=== PATIENT | female | born 1975 | race African-American/Black ===

== ENCOUNTER → 2017-02-16 | Outpatient (CLI) | payer BC ==
[~2017-02-16] MED LIST: AMLO-114 PO; ASCO1CAP3 PO; LISI-788 PO; MULT-506 PO; OMEG10007 PO; SIMV20TA2 PO
[2017-02-16 14:02] VITALS: BP 129/89; PULSE 77; TEMP 37; O2SAT 94
--- NOTE | 2017-02-16 16:28 | Radiation Oncology Follow-Up ---
Radiation Oncology Follow-Up Date of Visit February 16, 2017. Reason For Visit One-month follow-up and cancer survivorship care plan Radiation Completion Date finished 01-12-2017 Diagnosis (1) DCIS (ductal carcinoma in situ) of breast Onset Date: 05/12/2016 Stage: 0 Permanent Comment: Status post abnormal right breast mammogram 02/27/2016 Status post stereotactic biopsy 03/15/2016 revealing low-grade DCIS Estrogen receptor positive and progesterone receptor positive Status post right breast lumpectomy and bilateral reduction mammoplasty 2015 Stage pTis NX MX BRCA analysis negative Status post completion of radiation therapy 01/12/2017 received 5130 cGy utilizing hypo-fractionation. Last Edited By: Krystal Cali on January 26, 2017 09:43 History of Present Illness Ms. Harris is a 41-year-old female with a family history of breast cancer. The patient's mother was diagnosed at an early age and is from metastatic breast cancer. The patient has been followed carefully. Mammogram on 2010 compared to prior mammograms in 2008 in 2009 showed dense bilateral breast tissue with no abnormalities with a BI-RADS Category 1. Repeat in July 2012 showed a questionable new density in the left breast which was indeterminate. Spot compression views and ultrasound were recommended. This again showed an asymmetry in the left breast anterior depth that was indeterminate. On 08/11/2012 patient underwent bilateral MRIs of the breast. No true dominant mass was seen and no well defined dominant area of architectural distortion was seen in either breast. Additional close follow-up was recommended. Repeat MRI on 01/31/2013 again showed no overtly suspicious findings in either breast. In the right breast there were numerous tiny enhancing foci measuring up to 4 mm that were stable. Within the upper outer quadrant of the right breast a 1.8 cm area of prominent enhancement that was also present on prior exam without change noted. There was borderline enlargement of the right axillary lymph node also unchanged from prior MRI. A unilateral right digital diagnostic mammogram and targeted right breast ultrasound performed on 02/12/2013 was unremarkable with a BI-RADS Category 1. Her next documented mammogram was on 02/27/2016. This showed right lower inner quadrant calcifications and right medial breast asymmetry. Additional imaging was recommended. On 03/10/2016 patient underwent a unilateral right digital diagnostic mammogram and targeted right breast ultrasound. There was several new clusters of slightly pleomorphic microcalcifications noted with a segmental distribution in the lower inner middle and anterior right breast. When measuring the most posterior cluster to the most anterior cluster the disease distance was approximate 7 cm in the AP dimension and 4 cm in the craniocaudad dimension. These calcifications are new compared to the most recent prior mammogram from January 2013. There was no obvious mass or architectural distortion. On real-time high-resolution sonographic evaluation there were no suspicious solid or cystic masses to correlate with the effacing mammographic asymmetry. Patient was seen by Dr. Nick Crenshaw for further evaluation. A biopsy of these areas were recommended. On 2015 patient underwent a stereotactic guided right breast biopsy. This revealed a low-grade ductal carcinoma in situ with no infiltrative component. The low-grade DCIS was multifocally distributed clearly exceeding 1 cm in aggregate dimension. There was no necrosis. The architectural pattern was cribriform and micropapillary. Estrogen and progesterone receptors were positive. Case: [id number]. Dr. Crenshaw discussed the possibility of breast conserving therapy along with the possibility of bilateral reduction mammoplasty. The patient was seen by Dr. Margaret Mg and ultimately agreed to this approach. Therefore on 2015 the patient underwent a needle localization lumpectomy followed by bilateral reduction mammoplasty. The needle localization lumpectomy specimen confirmed residual low-grade DCIS. The distribution was again extensively distributed within the specimen with a foci of low-grade DCIS in aggregate exceeding 2 cm. There was focal expansive (comedo) necrosis seen. Architectural pattern was micropapillary and cribriform with microcalcifications present. The margins were free of tumor. The low-grade DCIS was closest to the inked margin with additional tissue taken that was clear. The remainder of the reduction mammoplasty tissue of the right breast showed no tumor and the left breast also showed no tumor. Case: [id number]. It was noted at that time however that a marker was not recovered and it was unclear whether this was still remaining and the patient. The patient has recovered extremely well with an excellent cosmetic outcome. On 09/03/2016 the patient underwent unilateral right digital diagnostic mammogram. This showed the expected postsurgical changes in the right breast from the recent lumpectomy and reduction mammoplasty. A residual biopsy clip from the prior stereotactic biopsy was noted in the right medial breast at the 3 o'clock position. Spot magnification views of the surgical bed demonstrate residual faint calcifications seen adjacent to the biopsy clip as well as anterior and posterior to the clip throughout the right lower inner quadrant. On the lateral view calcifications are seen to extend from the biopsy marker clips superiorly to the level of the skin inferiorly at the site of the scar. The total extent of the calcifications measured approximately 3.5 x 6.7 x 7.0 cm. Recommendations are for surgical excision of the residual calcifications and a biopsy marker. The tissue was sent for BRCA1 and 2 analysis and no clinically significant variant was detected. We were asked to see the patient prior to the finding of this most recent mammogram for evaluation and discussion of the role of radiation. It is for this reason the patient is seen in referral. She underwent a CT simulation. She was found to be a candidate for hypo- fractionation. The radiation was completed 01/12/2017. She received 5130 cGy Interim History She's been doing well over this past month. She did have some dryness and peeling of the skin. This resolved without difficulty. There is some mild darker discolorations and that continues. She has noted no masses or tenderness and no change of the axilla. She had seen Dr. Crenshaw in follow-up and was prescribed tamoxifen. She filled the prescription but has made decision not to take the medication at this time. Is currently not set up for follow-up mammography. Allergies Coded Allergies: Levofloxacin (Verified Allergy, Mild, ITCHY ABDOMINAL RASH, 05/12/16) Penicillins (Verified Adverse Reaction, Mild, NAUSEA AND VOMITING, 05/12/16 ) Home Medications Scheduled Amlodipine (Norvasc), 10 MG PO QPM Ascorbic Acid (Vitamin C), 1 CAP PO DAILY Fish Oil (Popejoy-3), 1 CAP PO DAILY Lisinopril/Hctz (Zestoretic 20MG/25MG), 1 TAB PO QPM Multivitamin (Multivitamin), 1 TAB PO QPM Simvastatin (Zocor), 1 TAB PO DAILY Review of Systems Gastrointestinal: Symptoms: WNL Oral: Symptoms: No Problems Respiratory: Symptoms: WNL Urinary: Symptoms: WNL Skin: Symptoms: No Problems Breast: Right Upper Arm Measurement: 32.0 Right Mid Arm Measurement: 25.4 Right Wrist Measurement: 15.1 Left Upper Arm Measurement: 32.5 Left Mid Arm Measurement: 24.8 Left Wrist Measurement: 15.2 Arm Dominence: Right Patient Cosmetic Evaluation: Good Staff Cosmetic Evalaluation: Good Additional Notes: She completed a distress management report and answered "no" to all questions. Physical Exam Vital Signs Date Time Temp Pulse Resp B/P Pulse Ox O2 Delivery O2 Flow Rate FiO2 02/16/17 14:02 37.0 77 18 129/89 94 Pain: Side: Bilateral Patient Pain Scale: 0 - 10 Initial Pain Intensity: 0.0 Fatigue: None General Appearance: no apparent distress Eyes: normal inspection, EOMI ENT: normal ENT inspection, hearing grossly normal Neck: no adenopathy, thyroid normal Respiratory/Chest: lungs clear, no respiratory distress, no accessory muscle use Breast: Breast examination reveals well-healed incisions from the bilateral reduction mammoplasties. There are no masses or tenderness no axillary adenopathy. She has mild keloid formation on the left side. Minimal keloid formation on the right. There is mild hyperpigmentation on the right. There is no breast edema. Using the [place] score cosmesis she has a good outcome. Cardiovascular: regular rate, rhythm, no gallop, no murmur Abdomen: non tender Extremities: no pedal edema Neurologic/Psychiatric: no motor/sensory deficits, alert, normal mood/affect Skin: warm/dry Assessment & Plan Plan: She may continue to discuss her decision about the tamoxifen with Dr. Crenshaw. Today we completed a cancer survivorship care plan. A copy of the document was given to the patient. She was scheduled for digital diagnostic mammograms. The right rest will be imaged in 2 months and bilateral mammography in 8 months. We asked her to return to our office in 6 months. She may call if she has any questions or concerns in the interim. Total Time In Follow-Up I spent 20 minutes speaking to the patient and performing examination. I spent 20 minutes reviewing information and completing this note. Copy To Nick Crenshaw M.D.; Margaret Mg MD; Catie Carbajal D.O. Problem Qualifiers (1) DCIS (ductal carcinoma in situ) of breast: Laterality: right Qualified Codes: D05.11 - Intraductal carcinoma in situ of right breast
== END | disposition home or self-care (01) ==
LOC: C.ONC 13:50
PROVIDERS: ATTEND Physician Assistant Medical
DX: Z08 Encounter for follow-up examination after completed treatment for malignant neoplasm (principal); Z92.3 Personal history of irradiation; Z85.3 Personal history of malignant neoplasm of breast

== ENCOUNTER → 2017-04-18 | Outpatient (CLI) | payer BC ==
--- NOTE | 2017-04-19 13:31 | MAMMOGRAPHY REPORT ---
BILATERAL DIGITAL DIAGNOSTIC MAMMOGRAM TOMOSYNTHESIS WITH CAD: 04/18/2017 CLINICAL HISTORY: History of right breast cancer status post right lumpectomy and bilateral reduction mammoplasty. The patient had subsequent right breast reexcisions with last reexcision yielding nega tive margins. She also underwent radiation therapy. The patient reports no current complaints. TECHNIQUE: Breast tomosynthesis in addition to standard 2D mammography was performed. Current study was also evaluated with a Computer Aided Detection (CAD) system. Bilateral CC and MLO 2D and tomosyn thesis images and spot magnification right cc and ML views were obtained. COMPARISON: Comparison is made to exams dated: 09/03/2016 mammogram, 05/12/2016 localization, 6 mammogram, 03/15/2016 stereotactic biopsy, 03/10/2016 ultrasound, and 03/10/2016 mammogram - [facility]. BREAST COMPOSITION: The tissue of both breasts is heterogeneously dense, which may obscure small mas ses. FINDINGS: Again noted are postsurgical changes in the right medial breast from prior lumpectomy, inc luding density, architectural distortion, and surgical clips at the lumpectomy bed. Post surgical ch anges from bilateral reduction mammoplasty are also noted. Spot magnification views demonstrate resi dual calcifications at the lumpectomy bed, predominantly the anterior aspect, as well as in the right lower inner quadrant more inferiorly near the skin surface. The total extent of the inferior calcif ications measures 2.2 cm on the spot magnification ML view, while the extent of calcifications at the lumpectomy bed measures up to 2.6 cm. Residual DCIS is not excluded. The remainder of both breasts demonstrate no suspicious masses, calcifications, or areas of nonsurgical architectural distortion. IMPRESSION: ACR BI-RADS CATEGORY 4: SUSPICIOUS Residual calcifications seen at the right lumpectomy bed as well as inferiorly near the skin surface. Residual DCIS is not excluded, therefore, surgical excision of the residual calcifications is recom mended. No mammographic evidence of malignancy in the left breast. A phone call was made to the physician's office to confirm faxed results were received. The patient has been verbally notified of the results. Approximately 10% of breast cancers are not detected with mammography. A negative mammographic report should not delay biopsy if a clinically suggestive mass is present. Regina Gerard M.D. ah/:04/18/2017 20:43:48 Executive Director [employer]: Charlene Bailey, [facility] letter sent: Abnormal 4/5 BI-RADS Code: ACR BI-RADS Category 4: Suspicious
== END | disposition home or self-care (01) ==
LOC: C.MAMM 08:11
PROVIDERS: ATTEND Physician Assistant Medical
DX: Z08 Encounter for follow-up examination after completed treatment for malignant neoplasm (principal); Z85.3 Personal history of malignant neoplasm of breast; Z92.3 Personal history of irradiation

== ENCOUNTER → 2017-08-24 | Outpatient (CLI) | payer BC ==
[2017-08-24 14:19] VITALS: BP 131/84; PULSE 84; TEMP 37; O2SAT 96
--- NOTE | 2017-08-24 16:35 | Radiation Oncology Follow-Up ---
Radiation Oncology Follow-Up Date of Visit Aug 24, 2017. Reason For Visit 6 month follow-up Radiation Completion Date Hypofractionation 01/12/17 Diagnosis (1) DCIS (ductal carcinoma in situ) of breast Onset Date: 05/12/2016 Stage: 0 Permanent Comment: Status post abnormal right breast mammogram 02/27/2016 Status post stereotactic biopsy 03/15/2016 revealing low-grade DCIS Estrogen receptor positive and progesterone receptor positive Status post right breast lumpectomy and bilateral reduction mammoplasty 2015 Stage pTis NX MX BRCA analysis negative Status post completion of radiation therapy 01/12/2017 received 5130 cGy utilizing hypo-fractionation. Abnormal mammogram 04/18/2017 Status post biopsy 05/06/2017 revealing benign fat necrosis Patient opted out of tamoxifen therapy. Last Edited By: Krystal Cali on Aug 24, 2017 16:29 History of Present Illness Ms. Vila has a family history of breast cancer. The patient's mother was diagnosed at an early age and is from metastatic breast cancer. The patient has been followed carefully. Mammogram on 2010 compared to prior mammograms in 2008 in 2009 showed dense bilateral breast tissue with no abnormalities with a BI-RADS Category 1. Repeat in July 2012 showed a questionable new density in the left breast which was indeterminate. Spot compression views and ultrasound were recommended. This again showed an asymmetry in the left breast anterior depth that was indeterminate. On 08/11/2012 patient underwent bilateral MRIs of the breast. No true dominant mass was seen and no well defined dominant area of architectural distortion was seen in either breast. Additional close follow-up was recommended. Repeat MRI on 01/31/2013 again showed no overtly suspicious findings in either breast. In the right breast there were numerous tiny enhancing foci measuring up to 4 mm that were stable. Within the upper outer quadrant of the right breast a 1.8 cm area of prominent enhancement that was also present on prior exam without change noted. There was borderline enlargement of the right axillary lymph node also unchanged from prior MRI. A unilateral right digital diagnostic mammogram and targeted right breast ultrasound performed on 02/12/2013 was unremarkable with a BI-RADS Category 1. Her next documented mammogram was on 02/27/2016. This showed right lower inner quadrant calcifications and right medial breast asymmetry. Additional imaging was recommended. On 03/10/2016 patient underwent a unilateral right digital diagnostic mammogram and targeted right breast ultrasound. There was several new clusters of slightly pleomorphic microcalcifications noted with a segmental distribution in the lower inner middle and anterior right breast. When measuring the most posterior cluster to the most anterior cluster the disease distance was approximate 7 cm in the AP dimension and 4 cm in the craniocaudad dimension. These calcifications are new compared to the most recent prior mammogram from January 2013. There was no obvious mass or architectural distortion. On real-time high-resolution sonographic evaluation there were no suspicious solid or cystic masses to correlate with the effacing mammographic asymmetry. Patient was seen by Dr. Nick Crenshaw for further evaluation. A biopsy of these areas were recommended. On 2015 patient underwent a stereotactic guided right breast biopsy. This revealed a low-grade ductal carcinoma in situ with no infiltrative component. The low-grade DCIS was multifocally distributed clearly exceeding 1 cm in aggregate dimension. There was no necrosis. The architectural pattern was cribriform and micropapillary. Estrogen and progesterone receptors were positive. Case: [id number]. Dr. Crenshaw discussed the possibility of breast conserving therapy along with the possibility of bilateral reduction mammoplasty. The patient was seen by Dr. Margaret Mg and ultimately agreed to this approach. Therefore on 2015 the patient underwent a needle localization lumpectomy followed by bilateral reduction mammoplasty. The needle localization lumpectomy specimen confirmed residual low-grade DCIS. The distribution was again extensively distributed within the specimen with a foci of low-grade DCIS in aggregate exceeding 2 cm. There was focal expansive (comedo) necrosis seen. Architectural pattern was micropapillary and cribriform with microcalcifications present. The margins were free of tumor. The low-grade DCIS was closest to the inked margin with additional tissue taken that was clear. The remainder of the reduction mammoplasty tissue of the right breast showed no tumor and the left breast also showed no tumor. Case: [id number]. It was noted at that time however that a marker was not recovered and it was unclear whether this was still remaining and the patient. The patient has recovered extremely well with an excellent cosmetic outcome. On 09/03/2016 the patient underwent unilateral right digital diagnostic mammogram. This showed the expected postsurgical changes in the right breast from the recent lumpectomy and reduction mammoplasty. A residual biopsy clip from the prior stereotactic biopsy was noted in the right medial breast at the 3 o'clock position. Spot magnification views of the surgical bed demonstrate residual faint calcifications seen adjacent to the biopsy clip as well as anterior and posterior to the clip throughout the right lower inner quadrant. On the lateral view calcifications are seen to extend from the biopsy marker clips superiorly to the level of the skin inferiorly at the site of the scar. The total extent of the calcifications measured approximately 3.5 x 6.7 x 7.0 cm. Recommendations are for surgical excision of the residual calcifications and a biopsy marker. The tissue was sent for BRCA1 and 2 analysis and no clinically significant variant was detected. We were asked to see the patient prior to the finding of this most recent mammogram for evaluation and discussion of the role of radiation. It is for this reason the patient is seen in referral. She underwent a CT simulation. She was found to be a candidate for hypo- fractionation. The radiation was completed 01/12/2017. She received 5130 cGy Interim History She had noticed no changes to her breast. She denies tenderness. No changes axilla or swelling of the arm. She had a recheck mammogram on 04/18/2017. This showed residual calcifications are seen at the right lumpectomy bed as well as inferiorly near the skin surface. Residual DCIS is not excluded, therefore, surgical excision of the residual ossifications is recommended. No mammographic evidence of malignancy in the left breast. This was given a BI- RADS Category 4. She was seen by Dr. Crenshaw and underwent an excisional biopsy. This was performed on 05/06/2017. This showed scar and reactive cellular changes consistent with previous procedures. That necrosis. Usual ductal hyperplasia. Scattered microcalcifications are present. The right inferior medial margin showed benign tissue. . She steadily recovered postoperatively and has been doing well. Dr. Crenshaw discussed antiestrogen therapy. She opted against taking tamoxifen. Allergies Coded Allergies: Levofloxacin (Verified Allergy, Mild, ITCHY ABDOMINAL RASH, 05/12/16) Penicillins (Verified Adverse Reaction, Mild, NAUSEA AND VOMITING, 05/12/16 ) Home Medications Scheduled Amlodipine (Norvasc), 10 MG PO QPM Ascorbic Acid (Vitamin C), 1 CAP PO DAILY Fish Oil ([place]-3), 1 CAP PO DAILY Lisinopril/Hctz (Zestoretic 20MG/25MG), 1 TAB PO QPM Multivitamin (Multivitamin), 1 TAB PO QPM Simvastatin (Zocor), 1 TAB PO DAILY Review of Systems Gastrointestinal: Symptoms: WNL Oral: Symptoms: No Problems Respiratory: Symptoms: WNL Urinary: Symptoms: WNL Skin: Symptoms: No Problems Breast: Right Upper Arm Measurement: 32.3 Right Mid Arm Measurement: 25.5 Right Wrist Measurement: 15.0 Left Upper Arm Measurement: 33.0 Left Mid Arm Measurement: 25.5 Left Wrist Measurement: 15.5 Arm Dominence: Right Physical Exam Vital Signs Date Time Temp Pulse Resp B/P (MAP) Pulse Ox O2 Delivery O2 Flow Rate FiO2 08/24/17 14:19 37.0 84 24 131/84 96 General Appearance: no apparent distress Eyes: normal inspection, EOMI ENT: normal ENT inspection, hearing grossly normal Neck: no adenopathy, thyroid normal Respiratory/Chest: lungs clear, no respiratory distress, no accessory muscle use Breast: Breast examination reveals status post bilateral minimal pexing. On the right she has an area of fibrous tissue in the central lower portion of the breast. There is associated hyperpigmentation. There are no distinct masses. She has no skin retractions or nipple changes. Using the [place] score cosmesis she has a good outcome. The left breast showed no masses or tenderness no axillary adenopathy. Cardiovascular: regular rate, rhythm, no gallop, no murmur Extremities: no pedal edema Neurologic/Psychiatric: no motor/sensory deficits, alert, normal mood/affect Skin: warm/dry Pain Management Pain Rating (0-10): 0 Pain Management Plan She denies pain therefore requires no pain management. Laboratory Studies [facility] SURGICAL PATHOLOGY REPORT Name JODIE VILA Case: [id number] SURGICAL PATHOLOGY REPORT Page 2 of 2 [facility] [address] [facility] [address] Jalen Yung M.D. correctional lieutenant PATHOLOGY REPORT SURGICAL PATHOLOGY REPORT Page 1 of 1 Name JODIE VILA Age/Sex 42/F Location: [facility] MR# [id number] : 1975 Rm/Bed Physician: Nick Crenshaw M.D. Case: [id number] Received 05/09/17 Specimen Date 05/06/17 CLINICAL HISTORY Calcifications right breast. GROSS DESCRIPTION A. RIGHT BREAST CALCIFICATIONS The specimen is received within a [employer] container labeled as right breast calcifications with patient name Jodie Vila. The specimen consists of a 9 x 6.8 x 2 cm fragment of fibrofatty tissue. The specimen radiograph shows two embedded localization needles and multiple metal clips, presumably from the prior excisions/re-excisions. Five different regions have been circled on the specimen radiograph and labeled 1 5. Some are associated with clips and others with punctate opacities, all aggregated, roughly centrally in the region of the wires and the clips. The regions are numbered 1 5 with regions 2, 3 and 4 associated with the area at and near the tip of the localization needles; 5, slightly outside the region of the needles and #1, in the region of the proximal ends of the localization needles. Sectioning through the specimen reveals an admixture of fatty and fibrous tissue and multiple metal clips. A semidiscrete, indurated, nodular focus is noted beyond the tips of the localization needles, just beyond the regions designated 2, 3 and 4. This measures 0.7 x 0.7 x 0.7 cm and abuts the resection margin. In the various numbered regions are an admixture of fibrous and fatty tissue, some of the fibrous tissue dense and hyaline in appearance and consistency. No definite gritty foci are noted. The specimen margins are inked. Supervisor Fitting sections are submitted in 23 cassettes as follows: A1 A10, circumferential peripheral edges; A11, nodular focus beyond regions 2, 3 and 4; A12/13, A14/15, and A16/17, paired, transverse sections to encompass regions 2, 3 and 4; A18 and A19, sections between regions 2, 3 and 4 and region 5; A20 and 21, region 5 ; A22 and 23, region #1. B. RIGHT BREAST INFERIOR MEDIAL MARGIN The specimen is received in a container labeled as right breast inferior medial with patient name Jodie Vila. The specimen consists of two irregular fragments of fibrofatty tissue which measure 1.4 x 1 x 0.6 cm and 3.6 x 2.3 x 1 cm. No portion of the specimen radiograph has been circled. Sectioning through each of the fragments reveals almost entirely soft, fatty tissue. The fragments are inked, sectioned and entirely submitted in six cassettes with B1 B5 representing the larger fragment and B6, the smaller. The specimens are received in formalin without indication as to time of fixation. SH/pi FINAL DIAGNOSIS A. BREAST, RIGHT, NEEDLE LOCALIZED EXCISION: 1. SCAR AND REACTIVE CELLULAR CHANGES CONSISTENT WITH PREVIOUS PROCEDURES. FAT NECROSIS. 2. USUAL DUCTAL HYPERPLASIA. 3. SCATTERED MICROCALCIFICATIONS PRESENT. B. BREAST, RIGHT, INFERIOR MEDIAL MARGIN, EXCISION: BENIGN BREAST TISSUE. PM/pi COPIES TO Nick Crenshaw M.D. [address] [place] [address] Drive [address] [place] [address] Breast Center, ([facility]) , [facility] PATHOLOGY ([facility]) , Signed: <signature on file> 05/10/17 Jalen Yung M.D. Additional Studies Patient: JODIE VILA [facility] Rec: [id number] Address1: [address] [place] [address] Address2: Acct ID: [id number] Date: 1975 Sex: F Ref Phy: Nick Crenshaw M.D. Att Phy: Krystal Cali PA-C Vanessa Phy: Catie Carbajal D.O. Inter Phy: Regina Gerard MD [facility] Zip: [place] [address] SC: C.MAMM Report #: [id number] Outside [employer] Sales Consultant: REYNALDO Diagnosis: RIGHT S/P TREATMENT--S/P LUMPECTOMY Service Date: 04/18/17 MNE: [id number] Ordering Dr: Krystal Cali PA-C CC: Krystal Cali PA-C CONF: DICTATED BY: Regina Gerard MD MAMMOGRAPHY REPORT BILATERAL DIGITAL DIAGNOSTIC MAMMOGRAM TOMOSYNTHESIS WITH CAD: 04/18/2017 CLINICAL HISTORY: History of right breast cancer status post right lumpectomy and bilateral reduction mammoplasty. The patient had subsequent right breast reexcisions with last reexcision yielding negative margins. She also underwent radiation therapy. The patient reports no current complaints. TECHNIQUE: Breast tomosynthesis in addition to standard 2D mammography was performed. Current study was also evaluated with a Computer Aided Detection (CAD ) system. Bilateral CC and MLO 2D and tomosynthesis images and spot magnification right cc and ML views were obtained. COMPARISON: Comparison is made to exams dated: 09/03/2016 mammogram, 05/12/2016 localization, 03/15/2016 mammogram, 03/15/2016 stereotactic biopsy, 03/10/2016 ultrasound, and 03/10/2016 mammogram - [facility]. BREAST COMPOSITION: The tissue of both breasts is heterogeneously dense, which may obscure small masses. FINDINGS: Again noted are postsurgical changes in the right medial breast from prior lumpectomy, including density, architectural distortion, and surgical clips at the lumpectomy bed. Post surgical changes from bilateral reduction mammoplasty are also noted. Spot magnification views demonstrate residual calcifications at the lumpectomy bed, predominantly the anterior aspect, as well as in the right lower inner quadrant more inferiorly near the skin surface. The total extent of the inferior calcifications measures 2.2 cm on the spot magnification ML view, while the extent of calcifications at the lumpectomy bed measures up to 2.6 cm. Residual DCIS is not excluded. The remainder of both breasts demonstrate no suspicious masses, calcifications, or areas of nonsurgical architectural distortion. IMPRESSION: ACR BI-RADS CATEGORY 4: SUSPICIOUS Residual calcifications seen at the right lumpectomy bed as well as inferiorly near the skin surface. Residual DCIS is not excluded, therefore, surgical excision of the residual calcifications is recommended. No mammographic evidence of malignancy in the left breast. A phone call was made to the physician's office to confirm faxed results were received. The patient has been verbally notified of the results. Approximately 10% of breast cancers are not detected with mammography. A negative mammographic report should not delay biopsy if a clinically suggestive mass is present. Regina Gerard M.D. ah/:04/18/2017 20:43:48 Supervisor Lead Burning: Charlene Bailey, [facility] letter sent: Abnormal 4/5 BI-RADS Code: ACR BI-RADS Category 4: Suspicious Dictated by: Regina Gerard MD Signed by: Regina Gerard MD Assessment & Plan Plan: She is seen Dr. Crenshaw follow-up and he has recommended a recheck mammogram in October. This will be a diagnostic mammogram of the right breast. Plan will be for her to have bilateral mammography 6 months after. The recheck mammogram was scheduled before she left today. We asked her to return to our office in 1 year. She may call if she has any questions or concerns in the interim. Total Time In Follow-Up I spent 20 minutes speaking to the patient performing examination. I spent 15 minutes reviewing information in completing this note. Copy To Nick Crenshaw M.D.; Margaret Mg MD; Catie Carbajal D.O. Problem Qualifiers (1) DCIS (ductal carcinoma in situ) of breast: Laterality: right Qualified Codes: D05.11 - Intraductal carcinoma in situ of right breast
== END | disposition home or self-care (01) ==
LOC: C.ONC 13:54
PROVIDERS: ATTEND Physician Assistant Medical
DX: Z08 Encounter for follow-up examination after completed treatment for malignant neoplasm (principal); Z92.3 Personal history of irradiation; Z85.3 Personal history of malignant neoplasm of breast

== ENCOUNTER → 2017-11-21 | Outpatient (CLI) | payer OTHER ==
--- NOTE | 2017-11-22 07:58 | MAMMOGRAPHY REPORT ---
UNILATERAL RIGHT DIGITAL DIAGNOSTIC MAMMOGRAM TOMOSYNTHESIS WITH CAD: 11/21/2017 CLINICAL HISTORY: 42-year-old woman with a personal history of right breast DCIS status post breast c onservation treatment and also bilateral reduction mammoplasty. She presents for a close follow-up i n the right breast after treatment. TECHNIQUE: Right breast CC and MLO 2-D and tomosynthesis images, spot magnification right CC and ML v iews were also obtained. Current study was also evaluated with a Computer Aided Detection (CAD) syst em. COMPARISON: Comparison is made to exams dated: 04/18/2017 mammogram, 09/03/2016 mammogram, 05/12/2016 l ocalization, 03/15/2016 mammogram, 03/15/2016 stereotactic biopsy, and 03/10/2016 ultrasound - [facility]. BREAST COMPOSITION: There are scattered areas of fibroglandular density in the right breast. FINDINGS: There is skin irregularity and expected architectural distortion involving the lower inner middle and posterior right breast, at the site of prior surgeries. Additional scarring is seen throu ghout the lateral right breast from prior reduction. There are two benign punctate calcifications co rresponding to skin on the first slice of the tomosynthesis set (slice 1/80) in the 5:00 to 6:00 righ t breast in the CC projection. Another coarser benign round calcification is seen more medially on t omosynthesis slice 23/80. However there is a newly visualized small, 2 mm grouping of punctate calci fications in the upper outer anterior right breast, for which spot magnification views were obtained. In the CC projection, these calcifications appear to be associated with a small oval lucent centere d thin rimmed mass, suggesting this could represent an oil cysts/fat necrosis. The calcifications ar e somewhat less prominent on the spot magnification views, but there are approximately 3-4 calcificat ions. Given that they may be associated with an oil cyst, they are probably benign. However, given the personal history of DCIS a close follow-up is recommended to ensure stability and/or coarsening. No other new masses, asymmetries, calcifications or unexpected areas of architectural distortion are seen in the right breast. IMPRESSION: ACR-BI-RADS CATEGORY 3: PROBABLY BENIGN 1. There are expected surgical/posttreatment changes in the right breast, without definite mammograp hic evidence of malignancy. There are a few calcifications corresponding to skin in the lower inner right breast. A newly visualized small grouping of approximately 4 punctate microcalcifications in t he upper outer anterior right breast may be associated within an oil cyst seen on the tomosynthesis i mages. However given that these are newly visualized, a short interval follow-up right diagnostic ma mmogram including spot magnification views is recommended to ensure stability in 6 months. Annual le ft mammography will also be due at that time. These results and recommendations were discussed with the patient at the time of the exam. Approximately 10% of breast cancers are not detected with mammography. A negative mammographic report should not delay biopsy if a clinically suggestive mass is present. Breanne Rivera M.D. ay/:11/21/2017 12:32:20 Pool Manager: Marilyn PATTERSON)([place]), [facility] letter sent: Follow Up Recommended 3 BI-RADS Code: ACR-BI-RADS Category 3: Probably Benign
== END | disposition home or self-care (01) ==
LOC: C.MAMM 08:53
PROVIDERS: ATTEND Physician Assistant Medical
DX: R92.0 Mammographic microcalcification found on diagnostic imaging of breast (principal); R92.1 Mammographic calcification found on diagnostic imaging of breast; Z08 Encounter for follow-up examination after completed treatment for malignant neoplasm; Z85.3 Personal history of malignant neoplasm of breast

== ENCOUNTER → 2018-05-19 | Outpatient (CLI) | payer OTHER ==
[~2018-05-19] MED LIST changes: -AMLO-114 PO; +AMLO10TA3 PO
== END | disposition home or self-care (01) ==
LOC: C.PAPS 15:03
PROVIDERS: ATTEND Family Medicine
DX: Z12.72 Encounter for screening for malignant neoplasm of vagina (principal)